=== PATIENT | female | born 1975 | race Two or more races ===

== ENCOUNTER → 2024-11-10 | Outpatient (BNVA) | payer MEDICAID, SELFPAY | END | disposition home or self-care (01) | PROVIDERS: PCP Physician Assistant; Referring Provider Physician Assistant; Visit Provider Urology | DX: N39.46 Mixed incontinence (principal); N32.81 Overactive bladder; E11.9 Type 2 diabetes mellitus without complications; I10 Essential (primary) hypertension; E66.9 Obesity, unspecified; Z68.36 Body mass index [BMI] 36.0-36.9, adult; E78.00 Pure hypercholesterolemia, unspecified | CPT/HCPCS: 81003; 99212; G0463 ==

== ENCOUNTER → 2025-06-22 | Outpatient (BNVA) | payer MEDICAID, SELFPAY | END | disposition home or self-care (01) | PROVIDERS: PCP Physician Assistant; Referring Provider Physician Assistant; Visit Provider Urology | DX: N39.46 Mixed incontinence (principal); E11.9 Type 2 diabetes mellitus without complications; I10 Essential (primary) hypertension; E66.9 Obesity, unspecified; Z68.35 Body mass index [BMI] 35.0-35.9, adult; E78.00 Pure hypercholesterolemia, unspecified | CPT/HCPCS: 81003; 99212; G0463 ==

== ENCOUNTER 2025-06-27 08:07 | Emergency (ER) | payer MEDICAID, SELFPAY ==
[2025-06-27 08:33] VITALS: BP 129/86; PULSE 99; RESP 18; TEMP 38.6; O2SAT 99; BMI 31.2
[2025-06-27 08:44] VITALS: TEMP 38.6
[2025-06-27] MEDS: ACETAMINOPHEN 500 MG TABLET 1000 MG PO (08:44)
[2025-06-27 09:07] LABS: Strep A Rapid Negative (Negative)
--- NOTE | 2025-06-27 09:38 | EDNOTE_ITS ---
<Statement entered by Cecily Ma MD - 07/04/25 06:56> As co-signing physician, I was present and available for consult prn. I concur with the plan and care as documented by the midlevel provider. Upper Respiratory Inf. RME/HPI General Chief Complaint: Dental/Oral/Throat Stated Complaint: SORE THROAT SINCE YESTERDAY Time Seen by Provider: 06/27/25 08:11 Arrival date/time: 06/27/25 08:07 50-year-old female presents to the emergency department today complains of sore throat ongoing since yesterday also reports runny nose and congestion ongoing since yesterday Limitations: no limitations Related Data Home Medications ?Medication ?Instructions ?Recorded ?Confirmed estradiol 0.01% (0.1 mg/gram) 2 g vaginal DIRECTED 11/10/24 06/22/25 vaginal cream (Estrace) lisinopril 20 mg tablet 20 mg PO QDAY 11/10/2406/22 oxybutynin chloride 10 mg 10 mg PO QDAY 11/10/2406/22 tablet,extended release 24 hr semaglutide 0.25 mg or 0.5 mg (2 0.5 mg subcut QWEEK 1 01/11/24 06/22/25 mg/3 mL) subcutaneous pen injector (Ozempic) simvastatin 40 mg tablet 40 mg PO QDAY 11/10/2406/22 Previous Rx's ?Medication ?Instructions ?Recorded acetaminophen 500 mg capsule 1,000 mg (2 x 500 mg) PO Q8HR PRN 06/27/25 pain #30 caps benzonatate 100 mg capsule 100 mg PO TID #14 caps 05/31 08/24 ibuprofen 600 mg tablet 600 mg PO Q6H #30 tabs 06/27 Allergies Allergy/AdvReac Type Severity Reaction Status Date / Time No Known Allergies Allergy Verified 06/27/25 08:14 Review of Systems Review of Systems Systems Reviewed: All systems reviewed, normal except as documented Constitutional Constitutional: Reports system reviewed and no additional complaints, except as documented, Reports body ache(s), Reports chills, Reports fever(s) and Reports headache(s) Eyes Eyes: Reports system reviewed and no additional complaints, except as documented and Denies blurry vision ENT Ears, Nose, Mouth, and Throat: Reports system reviewed and no additional complaints, except as documented, Reports headache(s), Reports nasal congestion and Reports nasal discharge Cardiovascular Cardiovascular: Reports system reviewed and no additional complaints, except as documented, Denies chest pain and Denies dyspnea Respiratory Respiratory: Reports system reviewed and no additional complaints, except as documented, Denies chest congestion, Denies cough and Denies dyspnea Gastrointestinal Gastrointestinal: Reports system reviewed and no additional complaints, except as documented and Denies abdominal pain Integumentary/Breasts Skin/Breast: Reports system reviewed and no additional complaints, except as documented and Denies rash Neurologic Neurologic: Reports system reviewed and no additional complaints, except as documented, Reports as per HPI and Reports headache(s) Past Medical History Past Medical History NEUROLOGIC: Negative Neurological Disorders or Seizures CARDIAC: Positive Hypercholesterolemia and Hypertension (TAKES MED); Negative Cardiac Disorders, Congestive Heart Failure, Edema, Cellulitis or Varicose Veins RESPIRATORY: Negative Chronic Obstructive Pulmonary Disease (COPD), Pneumonia, Tuberculosis or Sleep Apnea GASTROINTESTINAL: Positive Gastrointestinal Disorders and Obesity; Negative Hepatitis GENITOURINARY: Negative Genitourinary Disorders or Renal Disease REPRODUCTIVE: Positive Previous Pregnancies () MUSCULOSKELETAL: Negative Musculoskeletal Disorders ENDOCRINE: Negative Endocrine Disorders, Diabetes Mellitus Type 1, Diabetes Mellitus Type 2 (PREDIABETES) or Hypothyroidism HEMATOLOGIC: Negative Blood Disorders, Anemia or Clotting Problems OTHER HISTORY: Negative Hospitalization, Autoimmune Disease, Shingles, Falls, Blood Transfusions, Anesthesia Reactions, Chemotherapy, Radiation Therapy, MRSA, Chicken Pox, Measles, Mumps or Cancer Family History FAMILY HISTORY: Positive Family Surgery (SISTERS); Negative Family Psychiatric Problems, Family Respiratory Disorders, Family Cardiac Disorders, Family Gastrointestinal Problems, Family Cancer or Family Anesthesia Reaction Surgical History SURGICAL: Positive Tubal Ligation; Negative Pacemaker Social History SMOKING STATUS: Never smoker ED Exam General Limitations: Present no limitations General appearance: Present alert and in no apparent distress Head Head exam: Present atraumatic, normocephalic and normal inspection Eye Eye exam: Present normal appearance, PERRL and EOMI; Absent conjunctival injection ENT ENT exam: Present normal exam, normal oropharynx and mucous membranes moist Neck Neck exam: Present normal inspection, full ROM and trachea midline Chest Chest inspection: Present normal inspection and symmetric chest wall rise Respiratory Respiratory exam: Present normal lung sounds bilaterally; Absent respiratory distress Cardiovascular Cardiovascular exam: Present regular rate, normal rhythm and normal heart sounds Abdominal Exam Abdominal exam: Present soft and normal bowel sounds; Absent distention, tenderness, guarding, rebound or rigidity Extremities Exam Extremities exam: Present normal inspection and full ROM Back Exam Back exam: Present normal inspection and full ROM Neurological Exam Neurological exam: Present alert, oriented X3, CN II-XII intact, normal gait and reflexes normal; Absent motor sensory deficit Psychiatric Psychiatric exam: Present normal affect and normal mood Skin Skin exam: Present warm, dry, intact and normal color; Absent rash Course Quality Measures none Orders Category Date Time Status Bedside COVID-19 Antigen Test NOW Care 06/27/25 08:34 Completed Bedside Influenza A&B Antigen Test NOW Care 06/27/25 08:34 Completed Strep A Rapid Stat Lab 06/27/25 08:39 Completed Acetaminophen Tab [Tylenol ES Tab] Med 06/27/25 08:34 Discontinued 1,000 mg PO X1 ONE Vital Signs Vital signs: Vital Signs Temperature 101.5 F H 06/27/25 08:33 Pulse Rate 99 06/27/25 08:33 Respiratory Rate 18 06/27/25 08:33 Blood Pressure 129/86 H 06/27/25 08:33 Pulse Oximetry (%) 99 06/27/25 08:33 Oxygen Delivery Method Room Air 06/27/25 08:33 O2 saturation 99% room air within normal limits Upper Respiratory Infection MDM Narrative MDM Narrative:: 50-year-old female presents to the emergency department today complains of sore throat ongoing since yesterday also reports runny nose and congestion ongoing since yesterday On exam patient well-appearing patient does not appear ill or toxic no acute distress despite having a fever Strep flu and COVID obtained all of which are negative Patient's son is being seen to the patient as well with similar symptoms Symptoms are highly consistent with viral illness patient given medication for fever which improved symptoms Explained to the patient is very early on illness the symptoms persist or worsen she should return for reevaluation Patient data External records reviewed:: [facility] previous records Clinical information provided by:: patient Social determinants that could affect healthcare access:: none Patient has the following chronic illnesses:: See history How is presenting disease/condition affected by chronic disease/condition?: uneffected by Evaluation data The following diagnostics were reviewed and interpreted by me:: lab results Lab and/or radiology exams considered but not ordered:: Lab obtain Interpretation Summary: Reviewed by me Medications / Prescriptions Medications or Prescriptions considered but not ordered:: Given Medication administrations:: Medication Administration History Discontinued Medications Acetaminophen (Acetaminophen 500 Mg Tablet) 1,000 mg PO X1 ONE Stop: 06/27/25 08:35 Last Admin: 06/27/25 08:44 Dose: 1,000 mg Documented By: AA Given Consultations Consultation(s) initiated? (list below): No Diagnosis Upper Respiratory Differential Diagnosis: upper respiratory infection, sinusitis, viral infection, bronchitis and influenza Most likely diagnosis given after review of the tests above:: URI Admission Indicated Admission indicated?: not indicated Admission Request Was there a request for admission?: No Disposition Plan Disposition Plan: Discharge Discharge Attestation Discharge Attestation: The patient and all family members were given an opportunity to ask questions and understood the discharge instructions. Discharge instructions specifically effects, indications for sooner follow up or return to the emergency department, and the expected course of current diagnosis. Patient condition: Stable Discharge Plan Plan Patient Disposition: HOME (Self Care) Discharge Disposition comment: Stable Prescriptions/Referrals Prescriptions/Med Rec: New benzonatate 100 mg capsule 100 mg PO TID Qty: 14 0RF acetaminophen 500 mg capsule 1,000 mg PO Q8HR PRN (Reason: pain) Qty: 30 0RF ibuprofen 600 mg tablet 600 mg PO Q6H Qty: 30 0RF No Action Ozempic 0.25 mg or 0.5 mg (2 mg/3 mL) pen injector 0.5 mg subcut QWEEK lisinopril 20 mg tablet 20 mg PO QDAY simvastatin 40 mg tablet 40 mg PO QDAY oxybutynin chloride 10 mg tablet extended release 24hr 10 mg PO QDAY estradiol [Estrace] 0.01 % (0.1 mg/gram) cream 2 g vaginal DIRECTED Referrals: Gale Solorio PA-C [Primary Care Provider] - 06/29/25 Problem List Clinical Impression: URI (upper respiratory infection) Patient/Caregiver Discharge Instructions Education Materials: ED URI, Viral, No Abx (Adult) Additional Instructions: Please follow up with your primary care doctor in the next 24-48hrs for any worsening symptoms return here immediately Print Language: Romanian Stand Alone Forms: Linette Award Info., Patient Portal Info Letter PA/[place] Supervising Physician VANESSA/[place] Supervising Physician: Dr. ma
[2025-06-27 09:50] VITALS: BP 128/69; PULSE 63; RESP 18; TEMP 37.2; O2SAT 98
== END 2025-06-27 09:51 | disposition home or self-care (01) ==
PROVIDERS: Emergency Provider Nurse Practitioner Primary Care; PCP Physician Assistant
DX: J06.9 Acute upper respiratory infection, unspecified (principal)
CPT/HCPCS: 87400; 87651; 87811; 99283; A9270

== ENCOUNTER → 2025-10-02 | Outpatient (CLI) | payer MEDICAID, SELFPAY ==
--- NOTE | 2025-10-02 14:15 | XR_ITS ---
Examination: Screening digital mammography, bilateral Computer aided detection 3-D breast Tomosynthesis, bilateral Date and time of exam: 10/02/2025, 2:03 p.m. Comparisons: 07/11/2024 Indications: Screening Technique: Nonmagnified MLO, CC views of the breasts to been obtained, reconstructed from 3-D Tomosynthesis images. R2 computer aided detection program utilized for evaluation of suspicious masses and/or abnormal calcifications. 3-D Tomosynthesis images obtained. Technologist: Findings: There are scattered areas of fibroglandular density. No evidence of abnormal masses or suspicious calcifications. Stable left post biopsy marker clip. Impression: BI-RADS category 1: Negative findings (within normal) Recommend 1 year follow-up mammogram
== END | disposition home or self-care (01) ==
LOC: CDIM 13:56
PROVIDERS: Referring Provider Physician Assistant; Visit Provider Physician Assistant
DX: Z12.31 Encounter for screening mammogram for malignant neoplasm of breast (principal); R92.313 Mammographic fatty tissue density, bilateral breasts
CPT/HCPCS: 77063; 77067